=== PATIENT | male | born 1975 | race Caucasian/White ===

== ENCOUNTER 2017-10-22 06:24 | Day surgery (SDC) | payer OTHER ==
[2017-10-22] MEDS ORDERED: CEFAZOLIN 2 GM/50 ML (PMX) 50 ML IVPB (06:30)
[2017-10-22] MEDS ORDERED: SOD CHLORIDE 0.9% 1,000 ML IV (06:30)
[2017-10-22 06:54] LABS: ADD MAN DIFF? NO
[2017-10-22 07:07] LABS: WHITE BLOOD COUNT 4.9 10^3/ul (4.8-10.8)
[2017-10-22 07:07] LABS: BASOPHILS % 0.8 % (0.0-2.0); EOSINOPHILS # 0.3 10^3/ul (0.0-0.5); EOSINOPHILS % 6.6 % (0.0-7.0); HEMATOCRIT 47.3 % (42.0-52.0); HEMOGLOBIN 16.3 g/dl (14.0-18.0); LYMPHOCYTES # 1.8 10^3/ul (0.8-2.9); LYMPHOCYTES % 37.5 % (15.0-51.0); MEAN CORPUSCULAR HEMOGLOBIN 31.3 pg (29.0-33.0); MEAN CORPUSCULAR HGB CONC 34.5 g/dl (32.0-37.0); MEAN CORPUSCULAR VOLUME 90.8 fl (82.0-101.0); MEAN PLATELET VOLUME 11.4 fl (7.4-10.4); MONOCYTE # 0.5 10^3/ul (0.3-0.9); MONOCYTES % 9.7 % (0.0-11.0); NEUTROPHIL # 2.2 10^3/ul (1.6-7.5); NEUTROPHILS % 45.2 % (39.0-77.0); PLATELET COUNT 171 10^3/UL (140-415); RED BLOOD COUNT 5.21 10^6/ul (4.70-6.10); RED CELL DISTRIBUTION WIDTH 13.6 % (11.5-14.5)
[2017-10-22 07:16] LABS: INR 1.01; PROTIME 13.4 Sec (11.9-14.9)
[2017-10-22] MEDS ORDERED: BUPIVACAINE 0.25% (MPF) 30 ML INJ (07:19)
[2017-10-22 07:24] LABS: ALANINE AMINOTRANSFERASE 62 IU/L (13-69); ALBUMIN 4.1 g/dl (3.3-4.9); ALBUMIN/GLOBULIN RATIO 1.28; ALKALINE PHOSPHATASE 67 IU/L (42-121); ANION GAP 14 (8-16); ASPARTATE AMINO TRANSFERASE 33 IU/L (15-46); BILIRUBIN,INDIRECT 0.4 mg/dl (0-1.1); BILIRUBIN,TOTAL 0.4 mg/dl (0.2-1.3); BLOOD UREA NITROGEN 9 mg/dl (7-20); CALCIUM 8.9 mg/dl (8.4-10.2); CARBON DIOXIDE 22 mmol/L (21-31); CHLORIDE 110 mmol/L (97-110); CREATININE 0.74 mg/dl (0.61-1.24); GLUCOSE 99 mg/dl (70-220); POTASSIUM 3.8 mmol/L (3.5-5.1); SODIUM 142 mmol/L (135-144); TOTAL PROTEIN 7.3 g/dl (6.1-8.1)
[2017-10-22] MEDS ORDERED: PROPOFOL 20 ML (07:31)
[2017-10-22] MEDS ORDERED: FENTAnyl 50 MCG/ML VIAL (07:31)
[2017-10-22] MEDS ORDERED: NEOSTIGMINE 3 MG/3 ML SYRINGE (07:31)
[2017-10-22] MEDS ORDERED: DEXAMETHASONE 4 MG/ML 1 ML INJ (07:31)
[2017-10-22] MEDS ORDERED: CEFAZOLIN 1 GM INJ (07:31)
[2017-10-22] MEDS ORDERED: ROCURONIUM 50 MG INJ (07:31)
[2017-10-22] MEDS ORDERED: ONDANSETRON 4 MG INJ (07:31)
[2017-10-22] MEDS ORDERED: GLYCOPYRROLATE 0.4 MG INJ (07:31)
[2017-10-22] MEDS ORDERED: MIDAZOLAM 1 MG/ML 2 ML INJ (07:31)
[2017-10-22] MEDS ORDERED: MEPERIDINE 25 MG INJ IV (08:00)
[2017-10-22] MEDS ORDERED: DIPHENHYDRAMINE 50 MG INJ IV (08:00)
[2017-10-22] MEDS ORDERED: IPRATROPIUM (NEB) 0.5 MG/2.5 ML AMP HHN (08:00)
[2017-10-22] MEDS ORDERED: hydrALAzine 20 MG INJ IV (08:00)
[2017-10-22] MEDS ORDERED: FENTAnyl 50 MCG/ML VIAL IV ×3 (08:00)
[2017-10-22] MEDS ORDERED: LABETALOL HCL 20MG INJ IV (08:00)
[2017-10-22] MEDS ORDERED: TRIMETHOBENZAMIDE 100 MG/ML VIAL IM (08:00)
[2017-10-22] MEDS ORDERED: OXYCODONE/ACETAMINOPHEN (5/325) TAB PO (08:00)
[2017-10-22] MEDS ORDERED: ALBUTEROL 0.083% (NEB) 2.5 MG/3 ML AMP HHN (08:00)
[2017-10-22] MEDS ORDERED: EPHEDrine SULFATE 50 MG/5 ML SYG IV (08:00)
[2017-10-22] MEDS ORDERED: MIDAZOLAM 1 MG/ML 2 ML INJ IV (08:00)
[2017-10-22] MEDS ORDERED: HYDROmorphONE 1 MG/5 ML IV SYRINGE IV (08:00)
[2017-10-22] MEDS: BUPIVACAINE 0.25% (MPF) 30 ML INJ INJ ×3 (08:20→08:31)
[2017-10-22] MEDS: POLYMYXIN/BACITRACIN 1L IRRIG IRR (08:20)
[2017-10-22] MEDS: HYDROmorphONE 1 MG/5 ML IV SYRINGE IV ×2 (08:58→09:08)
[2017-10-22] MEDS ORDERED: HYDROCODONE/APAP (5/325) TAB PO (09:00)
[2017-10-22] MEDS: ONDANSETRON 4 MG INJ IV (09:09)
[2017-10-22] MEDS: OXYCODONE/ACETAMINOPHEN (5/325) TAB PO (10:47)
== END 2017-10-22 11:07 | disposition home or self-care (01) ==
LOC: SDS 06:24
DX: K43.9 Ventral hernia without obstruction or gangrene (principal)
CPT/HCPCS: 49653; 80053; 85025; 85610; 85730